=== PATIENT | female | born 1980 | race Caucasian/White ===

== ENCOUNTER 2019-06-01 07:51 | Emergency (ER) | payer SELFPAY ==
[2019-06-01] MEDS ORDERED: ALBUTEROL 2.5 MG/3 ML NEB SOL ONE ×2 (08:23→09:29)
[2019-06-01] MEDS ORDERED: predniSONE 20 MG TAB ONE (08:23)
[2019-06-01] MEDS ORDERED: IPRATROPIUM BROM 0.5MG/2.5ML ONE (08:23)
--- NOTE | 2019-06-01 09:14 | RAD REPORT ---
EXAM DESCRIPTION: Elaina Carrera (2 Views)06/01/2019 8:55 am CLINICAL HISTORY: Cough COMPARISON: 2012 FINDINGS: The lungs appear clear of acute infiltrate. The heart is normal size IMPRESSION: No acute abnormalities displayed
--- NOTE | 2019-06-01 09:26 | ER ---
Nurse's Notes [facility] Name: Raine Solis Age: 39 yrs Sex: Female : 1980 Arrival Date: 06/01/2019 Time: 07:55 Bed 8 Private MD: Diagnosis: Bronchitis, not specified as acute or chronic Presentation: 06/01 08:16 Presenting complaint: Patient states: COUGH AND CONGESTION SINCE FRIDAY. Transition bp of care: patient was not received from another setting of care. Onset of symptoms is unknown. Risk Assessment: Do you want to hurt yourself or someone else? Patient reports no desire to harm self or others. Initial Sepsis Screen: Does the patient meet any 2 criteria? No. Patient's initial sepsis screen is negative. Does the patient have a suspected source of infection? No. Patient's initial sepsis screen is negative. Care prior to arrival: None. 08:16 Method Of Arrival: Ambulatory bp 08:16 Acuity: YARI 4 bp Triage Assessment: 08:17 General: Appears in no apparent distress. comfortable, Behavior is calm, cooperative, bp appropriate for age. Pain: Denies pain. EENT: No deficits noted. Neuro: No deficits noted. Cardiovascular: Rhythm is sinus rhythm. Respiratory: Reports cough that is non-productive. GI: No signs and/or symptoms were reported involving the gastrointestinal system. : No signs and/or symptoms were reported regarding the genitourinary system. Derm: No deficits noted. Musculoskeletal: No deficits noted. 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 - Social history:: Smoking status: Patient uses tobacco products, smokes one-half pack cigarettes per day. - Ebola Screening: : No symptoms or risks identified at this time. Screenin:19 Abuse screen: Denies threats or abuse. Denies injuries from another. Nutritional bp screening: No deficits noted. Tuberculosis screening: No symptoms or risk factors identified. Fall Risk None identified. Assessment: 08:19 General: SEE TRIAGE NOTE. bp 08:32 Reassessment: PT RETURNED FROM RAD. bp 09:34 Reassessment: D/C ON HOLD FOR NEB COMPLETION. bp 09:58 Reassessment: PT D/C HOME AMBULATORY, DX WITH BRONCHITIS. bp Vital Signs: 08:17 BP 151 / 83; Pulse 70; Resp 18; Temp 98.2; Pulse Ox 100% ; Weight 83.91 kg; Height 5 bp ft. 7 in. (170.18 cm); 08:49 BP 113 / 72; Pulse 79; Resp 16; Pulse Ox 100% ; bp 09:35 BP 126 / 75; Pulse 81; Resp 16; Pulse Ox 100% ; bp 08:17 Body Mass Index 28.97 (83.91 kg, 170.18 cm) bp ED Course: 07:55 Patient arrived in ED. am2 07:55 Maci William FNP-C is [facility]. kb 07:55 Ashley Johnson MD is Attending Physician. kb 08:13 Crow Hughes, RN is Primary Nurse. bp 08:17 Triage completed. bp 08:17 Arm band placed on. bp 08:19 Patient has correct armband on for positive identification. Bed in low position. Call bp light in reach. Side rails up X2. 09:57 No provider procedures requiring assistance completed. Patient did not have IV access bp during this emergency room visit. Administered Medications: 08:20 Drug: DuoNeb (3:1) (2.5 mg - 0.5 mg) 3 ml Route: Nebulizer; bp 09:35 Follow up: Response: Marked relief of symptoms bp 08:20 Drug: predniSONE 40 mg Route: PO; bp 09:35 Follow up: Response: No adverse reaction bp 09:35 Drug: Zithromax 500 mg Route: PO; bp 09:35 Follow up: Response: No adverse reaction bp 09:35 Drug: Albuterol 2.5 mg Route: Inhalation; bp Outcome: 09:25 Discharge ordered by . kb 09:57 Discharged to home ambulatory. bp 09:57 Condition: stable 09:57 Discharge instructions given to patient, Instructed on discharge instructions, follow up and referral plans. medication usage, Demonstrated understanding of instructions, follow-up care, medications, Prescriptions given X 3. 09:58 Patient left the ED. bp Signatures: Maci William FNP-C TRIPLE VALVE MECHANIC-CkLiliya Cruz am2 Ellen, Crow, RN RN bp
--- NOTE | 2019-06-01 09:26 | EDPHYS ---
Physician Documentation [facility] Name: Raine Solis Age: 39 yrs Sex: Female : 1980 Arrival Date: 06/01/2019 Time: 07:55 Bed 8 Private MD: ED Physician Ashley Johnson HPI: 06/01 08:45 This 39 yrs old Female presents to ER via Ambulatory with complaints of Chest kb Congestion. 08:45 The patient or guardian reports cough, that is intermittent, described as moderate, kb with no sputum, difficulty breathing. Onset: The symptoms/episode began/occurred 7 day(s) ago. Severity of symptoms: At their worst the symptoms were moderate, in the emergency department the symptoms are unchanged. Modifying factors: The symptoms are alleviated by nothing, the symptoms are aggravated by nothing. Associated signs and symptoms: The patient has no apparent associated signs or symptoms. The patient has not experienced similar symptoms in the past. The patient has not recently seen a physician. Pt reports she developed a cough on Friday and symptoms have progressed from there. Reports subjective fever that has resolved. Reports chest congestion now that makes it hard to breathe. . 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 - Social history:: Smoking status: Patient uses tobacco products, smokes one-half pack cigarettes per day. - Ebola Screening: : No symptoms or risks identified at this time. ROS: 08:45 Constitutional: Negative for fever, chills, and weight loss, ENT: Negative for injury, kb pain, and discharge, Neck: Negative for injury, pain, and swelling, Cardiovascular: Negative for chest pain, palpitations, and edema, Abdomen/GI: Negative for abdominal pain, nausea, vomiting, diarrhea, and constipation, Back: Negative for injury and pain, MS/Extremity: Negative for injury and deformity, Skin: Negative for injury, rash, and discoloration, Neuro: Negative for headache, weakness, numbness, tingling, and seizure. 08:45 Respiratory: Positive for cough, shortness of breath. Exam: 08:45 Constitutional: This is a well developed, well nourished patient who is awake, alert, kb and in no acute distress. Head/Face: Normocephalic, atraumatic. ENT: Nares patent. No nasal discharge, no septal abnormalities noted. Tympanic membranes are normal and external auditory canals are clear. Oropharynx with no redness, swelling, or masses, exudates, or evidence of obstruction, uvula midline. Mucous membranes moist. Neck: Trachea midline, no thyromegaly or masses palpated, and no cervical lymphadenopathy. Supple, full range of motion without nuchal rigidity, or vertebral point tenderness. No Meningismus. Chest/axilla: Normal chest wall appearance and motion. Nontender with no deformity. No lesions are appreciated. Cardiovascular: Regular rate and rhythm with a normal S1 and S2. No gallops, murmurs, or rubs. Normal PMI, no JVD. No pulse deficits. Abdomen/GI: Soft, non-tender, with normal bowel sounds. No distension or tympany. No guarding or rebound. No evidence of tenderness throughout. Back: No spinal tenderness. No costovertebral tenderness. Full range of motion. Skin: Warm, dry with normal turgor. Normal color with no rashes, no lesions, and no evidence of cellulitis. MS/ Extremity: Pulses equal, no cyanosis. Neurovascular intact. Full, normal range of motion. Neuro: Awake and alert, GCS 15, oriented to person, place, time, and situation. Cranial nerves II-XII grossly intact. Motor strength 5/5 in all extremities. Sensory grossly intact. Cerebellar exam normal. Normal gait. 08:45 Respiratory: the patient does not display signs of respiratory distress, Respirations: normal, Breath sounds: wheezing: expiratory that is moderate, is heard diffusely. Vital Signs: 08:17 BP 151 / 83; Pulse 70; Resp 18; Temp 98.2; Pulse Ox 100% ; Weight 83.91 kg; Height 5 bp ft. 7 in. (170.18 cm); 08:49 BP 113 / 72; Pulse 79; Resp 16; Pulse Ox 100% ; bp 09:35 BP 126 / 75; Pulse 81; Resp 16; Pulse Ox 100% ; bp 08:17 Body Mass Index 28.97 (83.91 kg, 170.18 cm) bp MDM: 08:11 Patient medically screened. kb 08:44 Data reviewed: vital signs, nurses notes. Data interpreted: Pulse oximetry: on room air kb is 100 %. Interpretation: normal. 09:17 Counseling: I had a detailed discussion with the patient and/or guardian regarding: the kb historical points, exam findings, and any diagnostic results supporting the discharge/admit diagnosis, radiology results, the need for outpatient follow up, a family practitioner, to return to the emergency department if symptoms worsen or persist or if there are any questions or concerns that arise at home. 09:18 ED course: Antibiotics given due to smoking status. kb 06/01 08:16 Order name: Chest Pa And Lat (2 Views) XRAY kb 06/01 09:16 Order name: RAD; Complete Time: :17 EDMS Administered Medications: 08:20 Drug: DuoNeb (3:1) (2.5 mg - 0.5 mg) 3 ml Route: Nebulizer; bp 09:35 Follow up: Response: Marked relief of symptoms bp 08:20 Drug: predniSONE 40 mg Route: PO; bp 09:35 Follow up: Response: No adverse reaction bp 09:35 Drug: Zithromax 500 mg Route: PO; bp 09:35 Follow up: Response: No adverse reaction bp 09:35 Drug: Albuterol 2.5 mg Route: Inhalation; bp Disposition: 17:22 Co-signature as Attending Physician, Ashley Johnson MD. ma2 Disposition: 06/01/19 09:25 Discharged to Home. Impression: Bronchitis, not specified as acute or chronic. - Condition is Stable. - Discharge Instructions: Acute Bronchitis, [id number]. - Prescriptions for Prednisone 20 mg Oral Tablet - take 1 tablet by ORAL route once daily for 5 days; 5 tablet. Zithromax Z- Yordy 250 mg Oral Tablet - take 1 tablet by ORAL route as directed for 5 days Day 1 - take two (2) tablets one time. Day 2, 3, 4 , 5 take one (1) tablet once daily.; 6 tablet. Albuterol Sulfate 90 mcg/actuation - inhale 1-2 puff by INHALATION route every 4-6 hours; 1 Inhaler. - Medication Reconciliation Form, Thank You Letter, Antibiotic Education, Prescription Opioid Use, Work release form form. - Follow up: Emergency Department; When: As needed; Reason: Worsening of condition. Follow up: Private Physician; When: 2 - 3 days; Reason: Recheck today's complaints, Continuance of care, Re-evaluation by your physician. Signatures: Dispatcher [employer] Maci Carl FNP-C FNP-Ckb Peltier, Brian, RN RN bp Ashley Johnson MD MD ma2 Corrections: (The following items were deleted from the chart) 09:58 09:25 06/01/2019 09:25 Discharged to Home. Impression: Bronchitis, not specified as bp acute or chronic. Condition is Stable. Discharge Instructions: Acute Bronchitis, [id number]. Prescriptions for Prednisone 20 mg Oral Tablet - take 1 tablet by ORAL route once daily for 5 days; 5 tablet, Zithromax Z-Yordy 250 mg Oral Tablet - take 1 tablet by ORAL route as directed for 5 days Day 1 - take two (2) tablets one time. Day 2, 3, 4 , 5 take one (1) tablet once daily.; 6 tablet, Albuterol Sulfate 90 mcg/actuation - inhale 1-2 puff by INHALATION route every 4-6 hours; 1 Inhaler. and Forms are Medication Reconciliation Form, Thank You Letter, Antibiotic Education, Prescription Opioid Use. Follow up: Emergency Department; When: As needed; Reason: Worsening of condition. Follow up: Private Physician; When: 2 - 3 days; Reason: Recheck today's complaints, Continuance of care, Re-evaluation by your physician. kb
[2019-06-01] MEDS ORDERED: AZITHROMYCIN 250 MG TAB ONE (09:29)
[2019-06-01 10:08] VITALS: TEMP 98.2; O2SAT 100
[2019-06-01 10:11] VITALS: BP 126/75
== END 2019-06-01 09:58 | disposition home or self-care (01) ==
LOC: ER 07:51
DX: J40 Bronchitis, not specified as acute or chronic (principal); F17.210 Nicotine dependence, cigarettes, uncomplicated
CPT/HCPCS: 71046; 94640; 99284; J7512

== ENCOUNTER 2019-07-05 19:38 | Emergency (ER) | payer BC, SELFPAY ==
[2019-07-05] MEDS ORDERED: ALBUTEROL 2.5 MG/3 ML NEB SOL ONE (20:03)
[2019-07-05] MEDS ORDERED: AZITHROMYCIN 250 MG TAB ONE (20:03)
[2019-07-05] MEDS ORDERED: FAMOTIDINE 20 MG TAB ONE (20:03)
[2019-07-05] MEDS ORDERED: IPRATROPIUM BROM 0.5MG/2.5ML ONE (20:03)
[2019-07-05] MEDS ORDERED: predniSONE 20 MG TAB ONE (20:03)
--- NOTE | 2019-07-05 20:05 | EDPHYS ---
Physician Documentation [facility] Name: Raine Solis Age: 39 yrs Sex: Female : 1980 Arrival Date: 07/05/2019 Time: 19:40 Bed 20 Private MD: ED Physician Lester Eng HPI: 07/05 20:14 This 39 yrs old Female presents to ER via Ambulatory with complaints of Chest snw Congestion. 20:14 Onset: The symptoms/episode began/occurred suddenly, 1 day(s) ago, and became snw persistent. Associated signs and symptoms: Pertinent positives: cough, fever. The patient has experienced similar episodes in the past. The patient has not recently seen a physician. 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 - Social history:: Smoking status: Patient reports the use of cigarette tobacco products, smokes one-half pack cigarettes per day. - Ebola Screening: : No symptoms or risks identified at this time. ROS: 20:14 Constitutional: Negative for fever, chills, and weight loss, Eyes: Negative for injury, snw pain, redness, and discharge, ENT: Negative for injury, pain, and discharge, Neck: Negative for injury, pain, and swelling. 20:14 Cardiovascular: Negative for chest pain, palpitations, and edema, Abdomen/GI: Negative for abdominal pain, nausea, vomiting, diarrhea, and constipation, Back: Negative for injury and pain, : Negative for injury, bleeding, discharge, and swelling, MS/Extremity: Negative for injury and deformity, Skin: Negative for injury, rash, and discoloration, Neuro: Negative for headache, weakness, numbness, tingling, and seizure, Psych: Negative for depression, anxiety, suicide ideation, homicidal ideation, and hallucinations. 20:14 Respiratory: Positive for cough, wheezing, expiratory. Exam: 20:11 Abdomen/GI: Soft, non-tender, with normal bowel sounds. No distension or tympany. No snw guarding or rebound. No evidence of tenderness throughout. Back: No spinal tenderness. No costovertebral tenderness. Full range of motion. Skin: Warm, dry with normal turgor. Normal color with no rashes, no lesions, and no evidence of cellulitis. MS/ Extremity: Pulses equal, no cyanosis. Neurovascular intact. Full, normal range of motion. Neuro: Awake and alert, GCS 15, oriented to person, place, time, and situation. Cranial nerves II-XII grossly intact. Motor strength 5/5 in all extremities. Sensory grossly intact. Cerebellar exam normal. Normal gait. Psych: Awake, alert, with orientation to person, place and time. Behavior, mood, and affect are within normal limits. 20:11 Constitutional: This is a well developed, well nourished patient who is awake, alert, and in no acute distress. Head/Face: Normocephalic, atraumatic. Eyes: Pupils equal round and reactive to light, extra-ocular motions intact. Lids and lashes normal. Conjunctiva and sclera are non-icteric and not injected. Cornea within normal limits. Periorbital areas with no swelling, redness, or edema. ENT: Nares patent. No nasal discharge, no septal abnormalities noted. Tympanic membranes are erythematous and external auditory canals are clear. Oropharynx with no redness, swelling, or masses, exudates, or evidence of obstruction, uvula midline. Mucous membranes moist. Neck: Trachea midline, no thyromegaly or masses palpated, and no cervical lymphadenopathy. Supple, full range of motion without nuchal rigidity, or vertebral point tenderness. No Meningismus. Chest/axilla: Normal chest wall appearance and motion. Nontender with no deformity. No lesions are appreciated. 20:11 Cardiovascular: Rate: tachycardic, Rhythm: regular, Heart sounds: normal. 20:11 Respiratory: the patient does not display signs of respiratory distress, Respirations: normal, Breath sounds: wheezing: expiratory that is moderate, is heard diffusely, bronchitic cough. Vital Signs: 19:48 BP 150 / 84; Pulse 109; Resp 20; Temp 100.5(O); Pulse Ox 100% ; Weight 81.65 kg; Height hb 5 ft. 7 in. (170.18 cm); Pain 7/10; 19:48 Body Mass Index 28.19 (81.65 kg, 170.18 cm) hb MDM: 19:46 Patient medically screened. taina 20:12 Data reviewed: vital signs, nurses notes. Data interpreted: Pulse oximetry: on room air snw is 100 %. Interpretation: normal. Counseling: I had a detailed discussion with the patient and/or guardian regarding: the historical points, exam findings, and any diagnostic results supporting the discharge/admit diagnosis, the need for outpatient follow up, for definitive care, to return to the emergency department if symptoms worsen or persist or if there are any questions or concerns that arise at home. Special discussion: I have referred the patient to see his PCP for further evaluation of high blood pressure. Based on the history and exam findings, there is no indication for further emergent testing or inpatient evaluation. I discussed with the patient/guardian the need to see the primary care provider for further evaluation of the symptoms. Administered Medications: 20:04 Drug: Pepcid 20 mg Route: PO; hb 20:29 Follow up: Response: No adverse reaction hb 20:05 Drug: Zithromax 500 mg Route: PO; hb 20:29 Follow up: Response: No adverse reaction hb 20:05 Drug: Albuterol - atroVENT (3:1) (2.5 mg - 0.5 mg) 3 ml Route: Nebulizer; hb 20:29 Follow up: Response: No adverse reaction hb 20:05 Drug: predniSONE 40 mg Route: PO; hb 20:29 Follow up: Response: No adverse reaction hb Disposition: 07/06 07:45 Co-signature as Attending Physician, Lester Eng MD I agree with the assessment and [facility] plan of care. Disposition: 07/05/19 20:04 Discharged to Home. Impression: Bronchitis, not specified as acute or chronic, Otitis media, unspecified, bilateral. - Condition is Stable. - Discharge Instructions: Acute Bronchitis, Adult, Hypertension, Steps to Quit Smoking, Smoking Hazards, Cough, Adult, Rehydration, Adult. - Prescriptions for Prednisone 20 mg Oral Tablet - take 2 tablet by ORAL route once daily for 5 days; 10 tablet. Albuterol Sulfate 90 mcg/actuation - inhale 1-2 puff by INHALATION route every 4-6 hours; 1 Inhaler. Pepcid 20 mg Oral Tablet - take 1 tablet by ORAL route once daily; 20 tablet. Zithromax 500 mg Oral Tablet - take 1 tablet by ORAL route once daily for 5 days; 5 tablet. - Work release form, Medication Reconciliation Form, Thank You Letter, Antibiotic Education, Prescription Opioid Use form. - Follow up: Emergency Department; When: As needed; Reason: Worsening of condition. Follow up: Private Physician; When: 2 - 3 days; Reason: Recheck today's complaints, Continuance of care, Re-evaluation by your physician. Signatures: Lester Eng MD MD cha Therrien, Shelly, CURED MEATS SUPERVISOR-C CURED MEATS SUPERVISOR-Csnw Cece Nevarez RN RN Corrections: (The following items were deleted from the chart) 07/05 20:16 20:11 Constitutional: This is a well developed, well nourished patient who is awake, snw alert, and in no acute distress. Head/Face: Normocephalic, atraumatic. Eyes: Pupils equal round and reactive to light, extra-ocular motions intact. Lids and lashes normal. Conjunctiva and sclera are non-icteric and not injected. Cornea within normal limits. Periorbital areas with no swelling, redness, or edema. ENT: Nares patent. No nasal discharge, no septal abnormalities noted. Tympanic membranes are normal and external auditory canals are clear. Oropharynx with no redness, swelling, or masses, exudates, or evidence of obstruction, uvula midline. Mucous membranes moist. Neck: Trachea midline, no thyromegaly or masses palpated, and no cervical lymphadenopathy. Supple, full range of motion without nuchal rigidity, or vertebral point tenderness. No Meningismus. Chest/axilla: Normal chest wall appearance and motion. Nontender with no deformity. No lesions are appreciated. snw 20:16 20:11 Abdomen/GI: Soft, non-tender, with normal bowel sounds. No distension or tympany. snw No guarding or rebound. No evidence of tenderness throughout. Back: No spinal tenderness. No costovertebral tenderness. Full range of motion. Skin: Warm, dry with normal turgor. Normal color with no rashes, no lesions, and no evidence of cellulitis. MS/ Extremity: Pulses equal, no cyanosis. Neurovascular intact. Full, normal range of motion. Neuro: Awake and alert, GCS 15, oriented to person, place, time, and situation. Cranial nerves II-XII grossly intact. Motor strength 5/5 in all extremities. Sensory grossly intact. Cerebellar exam normal. Normal gait. Psych: Awake, alert, with orientation to person, place and time. Behavior, mood, and affect are within normal limits. snw 20:30 20:04 07/05/2019 20:04 Discharged to Home. Impression: Bronchitis, not specified as hb acute or chronic; Otitis media, unspecified, bilateral. Condition is Stable. Forms are Medication Reconciliation Form, Thank You Letter, Antibiotic Education, Prescription Opioid Use. Follow up: Emergency Department; When: As needed; Reason: Worsening of condition. Follow up: Private Physician; When: 2 - 3 days; Reason: Recheck today's complaints, Continuance of care, Re-evaluation by your physician. snw
--- NOTE | 2019-07-05 20:05 | ER ---
Nurse's Notes [facility] [place] Name: Raine Solis Age: 39 yrs Sex: Female : 1980 Arrival Date: 07/05/2019 Time: 19:40 Bed 20 Private MD: Diagnosis: Bronchitis, not specified as acute or chronic;Otitis media, unspecified, bilateral Presentation: 07/05 19:46 Presenting complaint: Nonproductive cough, body aches, and chills x 5 days. Transition hb of care: patient was not received from another setting of care. Onset of symptoms was July 01, 2019. Risk Assessment: Do you want to hurt yourself or someone else? Patient reports no desire to harm self or others. Initial Sepsis Screen: Does the patient meet any 2 criteria? No. Patient's initial sepsis screen is negative. Does the patient have a suspected source of infection? No. Patient's initial sepsis screen is negative. Care prior to arrival: None. 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 - Social history:: Smoking status: Patient reports the use of cigarette tobacco products, smokes one-half pack cigarettes per day. - Ebola Screening: : No symptoms or risks identified at this time. Screenin:49 Abuse screen: Denies threats or abuse. Denies injuries from another. Nutritional hb screening: No deficits noted. Tuberculosis screening: No symptoms or risk factors identified. Fall Risk None identified. Assessment: 19:51 General: Appears in no apparent distress. Behavior is calm, cooperative. Pain: Pain hb currently is 7 out of 10 on a pain scale. Neuro: Level of Consciousness is awake, alert, obeys commands, Oriented to person, place, time, situation. Cardiovascular: Heart tones S1 S2 present Capillary refill < 3 seconds Patient's skin is warm and dry. Respiratory: Airway is patent Trachea midline Respiratory effort is even, unlabored, Respiratory pattern is regular, symmetrical, Breath sounds are clear bilaterally. GI: No signs and/or symptoms were reported involving the gastrointestinal system. : No signs and/or symptoms were reported regarding the genitourinary system. EENT: No signs and/or symptoms were reported regarding the EENT system. Derm: Skin is pink, warm \T\ dry. Musculoskeletal: No signs and/or symptoms reported regarding the musculoskeletal system. 20:17 Reassessment: Discharge ordered, neb treatment in process at this time. hb Vital Signs: 19:48 BP 150 / 84; Pulse 109; Resp 20; Temp 100.5(O); Pulse Ox 100% ; Weight 81.65 kg; Height hb 5 ft. 7 in. (170.18 cm); Pain 7/10; 19:48 Body Mass Index 28.19 (81.65 kg, 170.18 cm) hb ED Course: 19:40 Patient arrived in ED. es 19:42 Jesi Meza FNP-C is PHCP. snw 19:42 Lester Eng MD is Attending Physician. snw 19:44 Cece Nevarez, MARLIN is Primary Nurse. hb 19:47 Triage completed. hb 19:48 Arm band placed on. hb 19:49 Patient has correct armband on for positive identification. Bed in low position. Call hb light in reach. Side rails up X 1. 20:27 No provider procedures requiring assistance completed. Patient did not have IV access hb during this emergency room visit. Administered Medications: 20:04 Drug: Pepcid 20 mg Route: PO; hb 20:29 Follow up: Response: No adverse reaction hb 20:05 Drug: Zithromax 500 mg Route: PO; hb 20:29 Follow up: Response: No adverse reaction hb 20:05 Drug: Albuterol - atroVENT (3:1) (2.5 mg - 0.5 mg) 3 ml Route: Nebulizer; hb 20:29 Follow up: Response: No adverse reaction hb 20:05 Drug: predniSONE 40 mg Route: PO; hb 20:29 Follow up: Response: No adverse reaction hb Outcome: 20:04 Discharge ordered by . snw 20:27 Discharged to home ambulatory, with significant other. hb 20:27 Condition: stable 20:27 Discharge instructions given to patient, Instructed on discharge instructions, follow up and referral plans. medication usage, Demonstrated understanding of instructions, follow-up care, medications, Prescriptions given X 4. 20:30 Patient left the ED. hb Signatures: Jesi Meza, ENGRAVER HAND SOFT METALS-C ENGRAVER HAND SOFT METALS-Csnw Mayra Hayward Heather, RN RN hb
[2019-07-05 23:07] VITALS: BP 150/84; TEMP 100.5; O2SAT 100
== END 2019-07-05 20:30 | disposition home or self-care (01) ==
LOC: ER 19:38
DX: J40 Bronchitis, not specified as acute or chronic (principal); H66.93 Otitis media, unspecified, bilateral; F17.210 Nicotine dependence, cigarettes, uncomplicated
CPT/HCPCS: 94640; 99284; J7512

== ENCOUNTER 2020-01-03 12:58 | Emergency (ER) | payer BC ==
--- NOTE | 2020-01-03 15:12 | RAD REPORT ---
EXAM DESCRIPTION: Shoulder Right 2 View - 01/03/2020 2:48 pm CLINICAL HISTORY: PAIN COMPARISON: No comparisons TECHNIQUE: Internal and external rotation views of the right shoulder were obtained. FINDINGS: There is no fracture or dislocation. AC joint is normal in appearance. No acute or suspic ious findings. IMPRESSION: Negative two-view right shoulder examination.
[2020-01-03] MEDS ORDERED: KETOROLAC 30 MG/ML INJ ONE (15:43)
[2020-01-03] MEDS ORDERED: DIAZEPAM 2 MG TABLET ONE (15:43)
--- NOTE | 2020-01-03 16:27 | ER ---
Nurse's Notes [facility] [place] Name: Raine Solis Age: 39 yrs Sex: Female : 1980 Arrival Date: 01/03/2020 Time: 13:01 Bed 18 Private MD: Diagnosis: Fall (on) (from) other stairs and steps;Strain of muscle(s) and tendon(s) of the rotator cuff of right shoulder Presentation: 01/02 13:22 Chief complaint: Patient states: fell from back seat on truck and landing on ground em yesterday monting, landed on right shoulder and face, denies neck pain, reports pain with movement on right shoulder, denies LOC. Coronavirus screen: Patient denies a cough. Patient denies shortness of breath or difficulty breathing. Patient denies measured and/or subjective temperature greater than 100.4F prior to today's visit. Patient denies travel on a cruise ship or to a country the [facility] currently lists as an affected area. Patient denies contact with known and/or suspected case of COVID-19. Ebola Screen: Patient negative for fever greater than or equal to 101.5 degrees Fahrenheit, and additional compatible Ebola Virus Disease symptoms Patient denies exposure to infectious person. Patient denies travel to an Ebola-affected area in the 21 days before illness onset. No symptoms or risks identified at this time. Initial Sepsis Screen: Does the patient meet any 2 criteria? No. Patient's initial sepsis screen is negative. Does the patient have a suspected source of infection? No. Patient's initial sepsis screen is negative. Risk Assessment: Do you want to hurt yourself or someone else? Patient reports no desire to harm self or others. Onset of symptoms was January 02, 2020. 13:22 Method Of Arrival: Ambulatory em 13:22 Acuity: YARI 4 em Triage Assessment: 14:10 General: Appears in no apparent distress. uncomfortable, Behavior is calm, cooperative, bp appropriate for age. Pain: Complains of pain in anterior aspect of right shoulder. EENT: No deficits noted. Neuro: No deficits noted. Cardiovascular: No deficits noted. Respiratory: No deficits noted. GI: No signs and/or symptoms were reported involving the gastrointestinal system. : No signs and/or symptoms were reported regarding the genitourinary system. Derm: No deficits noted. Musculoskeletal: No deficits noted. Injury Description: Bruise sustained to anterior aspect of right shoulder. 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 - Social history:: Smoking status: Patient reports the use of cigarette tobacco products, smokes one-half pack cigarettes per day. Screenin:10 Abuse screen: Denies threats or abuse. Denies injuries from another. Nutritional bp screening: No deficits noted. Tuberculosis screening: No symptoms or risk factors identified. Fall Risk None identified. Assessment: 14:10 General: SEE TRIAGE NOTE. bp 16:40 Reassessment: PT D/C HOME AMBULATORY, DX WITH ROTATOR CUFF STRAIN. bp Vital Signs: 13:22 BP 111 / 75; Pulse 85; Resp 18; Temp 98.1(O); Pulse Ox 100% on R/A; Weight 90.72 kg; em Height 5 ft. 6 in. (167.64 cm); Pain 6/10; 15:00 BP 121 / 69; Pulse 79; Resp 18; Pulse Ox 100% ; bp 16:35 BP 117 / 71; Pulse 81; Resp 18; Temp 98.5; Pulse Ox 99% ; bp 13:22 Body Mass Index 32.28 (90.72 kg, 167.64 cm) em ED Course: 13:01 Patient arrived in ED. bp1 13:26 Triage completed. em 13:26 Arm band placed on. em 14:10 Patient has correct armband on for positive identification. Bed in low position. Call bp light in reach. Side rails up X2. 14:21 Jesi Lau FNP-C is PHCP. snw 14:21 Jerman Mitchell MD is Attending Physician. snw 14:34 Crow Hughes, MARLIN is Primary Nurse. bp 14:48 Shoulder Right (2 View) XRAY In Process Unspecified. EDMS 16:00 Sling applied to right arm. bp 16:25 Wes Ramirez MD is Referral Physician. snw 16:40 No provider procedures requiring assistance completed. Patient did not have IV access bp during this emergency room visit. Administered Medications: 15:30 Drug: TORadol 30 mg Route: IM; Site: left deltoid; bp 16:42 Follow up: Response: Pain is decreased bp 15:30 Drug: Valium 2 mg Route: PO; bp 16:41 Follow up: Response: No adverse reaction bp Outcome: 16:26 Discharge ordered by MD. fox 16:41 Discharged to home ambulatory. bp 16:41 Condition: stable 16:41 Discharge instructions given to patient, Instructed on discharge instructions, follow up and referral plans. medication usage, Demonstrated understanding of instructions, follow-up care, medications, splint care, Prescriptions given X 2. 16:42 Patient left the ED. bp Signatures: Dispatcher [employer] EDJesi Gordon, BINDING DYER-C BINDING DYER-Csnw Christiano Tapia, RN RN Crow Leblanc RN RN Elisabeth Ryder bp1
--- NOTE | 2020-01-03 16:27 | EDPHYS ---
Physician Documentation [facility] Name: Raine Solis Age: 39 yrs Sex: Female : 1980 Arrival Date: 01/03/2020 Time: 13:01 Bed 18 Private MD: ED Physician Jerman Mitchell HPI: 01/02 17:29 This 39 yrs old Female presents to ER via Ambulatory with complaints of snw Shoulder Injury, Shoulder Pain. 17:29 The patient or guardian complains of contusion, decreased range of motion, an injury, snw pain, that is acute. right shoulder. Context: The problem was sustained outdoors, resulted from a fall, from truckbed, The patient experiences decreased range of motion. Onset: The symptoms/episode began/occurred suddenly, 4 day(s) ago. Severity of symptoms: At their worst the symptoms were moderate. The patient has not experienced similar symptoms in the past. The patient has not recently seen a physician. 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 - Social history:: Smoking status: Patient reports the use of cigarette tobacco products, smokes one-half pack cigarettes per day. ROS: 17:28 Constitutional: Negative for fever, chills, and weight loss, Eyes: Negative for injury, snw pain, redness, and discharge, ENT: Negative for injury, pain, and discharge, Neck: Negative for injury, pain, and swelling, Cardiovascular: Negative for chest pain, palpitations, and edema, Respiratory: Negative for shortness of breath, cough, wheezing, and pleuritic chest pain, Abdomen/GI: Negative for abdominal pain, nausea, vomiting, diarrhea, and constipation, Back: Negative for injury and pain, : Negative for injury, bleeding, discharge, and swelling, Skin: Negative for injury, rash, and discoloration, Neuro: Negative for headache, weakness, numbness, tingling, and seizure, Psych: Negative for depression, anxiety, suicide ideation, homicidal ideation, and hallucinations. 17:28 MS/extremity: Positive for injury or acute deformity, contusion, decreased range of motion, pain, tenderness, of the right arm and anterior aspect of right shoulder. Exam: 17:27 Constitutional: This is a well developed, well nourished patient who is awake, alert, snw and in no acute distress. Head/Face: Normocephalic, atraumatic. Eyes: Pupils equal round and reactive to light, extra-ocular motions intact. Lids and lashes normal. Conjunctiva and sclera are non-icteric and not injected. Cornea within normal limits. Periorbital areas with no swelling, redness, or edema. ENT: Nares patent. No nasal discharge, no septal abnormalities noted. Tympanic membranes are normal and external auditory canals are clear. Oropharynx with no redness, swelling, or masses, exudates, or evidence of obstruction, uvula midline. Mucous membranes moist. Neck: Trachea midline, no thyromegaly or masses palpated, and no cervical lymphadenopathy. Supple, full range of motion without nuchal rigidity, or vertebral point tenderness. No Meningismus. Chest/axilla: Normal chest wall appearance and motion. Nontender with no deformity. No lesions are appreciated. Cardiovascular: Regular rate and rhythm with a normal S1 and S2. No gallops, murmurs, or rubs. Normal PMI, no JVD. No pulse deficits. Respiratory: Lungs have equal breath sounds bilaterally, clear to auscultation and percussion. No rales, rhonchi or wheezes noted. No increased work of breathing, no retractions or nasal flaring. Abdomen/GI: Soft, non-tender, with normal bowel sounds. No distension or tympany. No guarding or rebound. No evidence of tenderness throughout. Back: No spinal tenderness. No costovertebral tenderness. Full range of motion. Skin: Warm, dry with normal turgor. Normal color with no rashes, no lesions, and no evidence of cellulitis. Neuro: Awake and alert, GCS 15, oriented to person, place, time, and situation. Cranial nerves II-XII grossly intact. Motor strength 5/5 in all extremities. Sensory grossly intact. Cerebellar exam normal. Normal gait. Psych: Awake, alert, with orientation to person, place and time. Behavior, mood, and affect are within normal limits. 17:27 Musculoskeletal/extremity: Extremities: grossly normal except: noted in the anterior aspect of right shoulder: contusion, decreased ROM, pain, ROM: limited active range of motion due to pain, limited passive range of motion due to pain, in the right arm, Circulation is intact in all extremities. Sensation intact. Compartment Syndrome exam of affected extremity: is normal. Vital Signs: 13:22 BP 111 / 75; Pulse 85; Resp 18; Temp 98.1(O); Pulse Ox 100% on R/A; Weight 90.72 kg; em Height 5 ft. 6 in. (167.64 cm); Pain 6/10; 15:00 BP 121 / 69; Pulse 79; Resp 18; Pulse Ox 100% ; bp 16:35 BP 117 / 71; Pulse 81; Resp 18; Temp 98.5; Pulse Ox 99% ; bp 13:22 Body Mass Index 32.28 (90.72 kg, 167.64 cm) em MDM: 16:15 Patient medically screened. snw 17:28 Data reviewed: vital signs, nurses notes. Data interpreted: Pulse oximetry: on room air snw is 99 %. Interpretation: normal. Counseling: I had a detailed discussion with the patient and/or guardian regarding: the historical points, exam findings, and any diagnostic results supporting the discharge/admit diagnosis, radiology results, the need for outpatient follow up, to return to the emergency department if symptoms worsen or persist or if there are any questions or concerns that arise at home. Special discussion: Based on the history and exam findings, there is no indication for further emergent testing or inpatient evaluation. I discussed with the patient/guardian the need to see the orthopedic surgeon for further evaluation of the symptoms. I discussed with the patient/guardian the need to see the primary care provider for further evaluation of the symptoms. 01/02 13:28 Order name: Shoulder Right (2 View) XRAY; Complete Time: 15:14 em 01/02 16:16 Order name: Sling; Complete Time: 16:42 snw Administered Medications: 15:30 Drug: TORadol 30 mg Route: IM; Site: left deltoid; bp 16:42 Follow up: Response: Pain is decreased bp 15:30 Drug: Valium 2 mg Route: PO; bp 16:41 Follow up: Response: No adverse reaction bp Disposition: 18:25 Co-signature as Attending Physician, Jerman Mitchell MD. rn Disposition: 01/03/20 16:26 Discharged to Home. Impression: Fall (on) (from) other stairs and steps, Strain of muscle(s) and tendon(s) of the rotator cuff of right shoulder. - Condition is Stable. - Discharge Instructions: RICE for Routine Care of Injuries, Shoulder Pain, Shoulder Sprain, How to Use a Sling. - Prescriptions for Diclofenac Sodium 75 mg Oral Tablet Sustained Release - take 1 tablet by ORAL route 2 times per day; 30 tablet. orphenadrine citrate 100 mg Oral Tablet Sustained Release - take 1 tablet by ORAL route 2 times per day As needed; 20 tablet. - Work release form, Medication Reconciliation Form, Thank You Letter, Antibiotic Education, Prescription Opioid Use form. - Follow up: Emergency Department; When: As needed; Reason: Worsening of condition. Follow up: Wes Ramirez MD; When: 1 week; Reason: Recheck today's complaints, Continuance of care. Signatures: Dispatcher [employer] EDMS Jesi Lau, GE-C SIGN BUILDER-Csnw Christiano Tapia, RN RN Jerman Bhatia MD MD rn Peltier, Brian RN RN bp Corrections: (The following items were deleted from the chart) 16:42 16:26 01/03/2020 16:26 Discharged to Home. Impression: Fall (on) (from) other stairs bp and steps; Strain of muscle(s) and tendon(s) of the rotator cuff of right shoulder. Condition is Stable. Forms are Medication Reconciliation Form, Thank You Letter, Antibiotic Education, Prescription Opioid Use. Follow up: Emergency Department; When: As needed; Reason: Worsening of condition. Follow up: Dr. Wes Ramirez; When: 1 week; Reason: Recheck today's complaints, Continuance of care. snw
[2020-01-04 03:20] VITALS: BP 117/71; TEMP 98.5; O2SAT 99
== END 2020-01-03 16:42 | disposition home or self-care (01) ==
LOC: ER 12:58
DX: S46.011A Strain of muscle(s) and tendon(s) of the rotator cuff of right shoulder, initial encounter (principal); W10.9XXA Fall (on) (from) unspecified stairs and steps, initial encounter; Y93.9 Activity, unspecified; Y92.9 Unspecified place or not applicable; F17.210 Nicotine dependence, cigarettes, uncomplicated
CPT/HCPCS: 96372; 99284

== ENCOUNTER 2021-01-05 13:57 | Emergency (ER) | payer BC ==
[2021-01-05 15:13] LABS: Urine Blood 1+ (Negative); Urine Glucose Negative (Negative); Urine Protein 2+ (Negative)
[2021-01-05] MEDS ORDERED: ACETAMINOPHEN 500 MG TAB ONE (15:23)
[2021-01-05 15:37] LABS: Urine Bacteria 20-50 /HPF (<20); Urine Mucus 1+ /HPF (NONE SEEN)
[2021-01-05 15:54] LABS: Absolute Lymphocytes (CBC) 1.7 K/uL (0.7-4.9); Basophils % 0.3 % (0-1.3); Hematocrit 37.8 % (36.0-45.0); Lymphocytes % 12.8 % (15.3-44.8); MPV 8.2 fL (7.6-11.3); RBC Red Blood Cell Count 4.41 M/uL (3.86-4.86)
[2021-01-05] MEDS ORDERED: NA CHLORIDE 0.9% 1,000 ML ONE (15:55)
[2021-01-05] MEDS ORDERED: CEFTRIAXONE/SWI 1gm 1 GM/10 ML SYR ONE (15:55)
[2021-01-05 16:10] LABS: Albumin 3.3 g/dL (3.4-5.0); Bilirubin Direct 0.2 mg/dL (0-0.2); Bilirubin Total 0.5 mg/dL (0.2-1.0); Potassium 3.5 mmol/L (3.5-5.1); Protein, Total 7.6 g/dL (6.4-8.2)
--- NOTE | 2021-01-05 16:26 | EDPHYS ---
Physician Documentation [facility] Name: Raine Sol[facility] Age: 40 yrs Sex: Female : 1980 Arrival Date: 01/05/2021 Time: 13:59 Bed 7 Private MD: ED Physician Ashley Johnson HPI: 01/05 15:13 This 40 yrs old Female presents to ER via Ambulatory with complaints of ma2 Fever, Chills. 15:13 Onset: The symptoms/episode began/occurred gradually, 2 day(s) ago. Associated signs ma2 and symptoms: Pertinent positives: dysuria, Pertinent negatives: altered mental status, backache, chills, cough, diarrhea, pulling at ears, nausea, runny nose, sinus congestion, skin rash. Severity of symptoms: At their worst the symptoms were moderate in the emergency department the symptoms are unchanged. The patient has experienced similar episodes in the past. 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 - Social history:: Smoking status: Patient reports the use of cigarette tobacco products, smokes one-half pack cigarettes per day, Patient uses alcohol, weekly. - Family history:: not pertinent. ROS: 15:13 Constitutional: Negative for fever, chills, and weight loss. ma2 15:13 All other systems are negative. Exam: 15:13 Constitutional: This is a well developed, well nourished patient who is awake, alert, ma2 and in no acute distress. Head/Face: Normocephalic, atraumatic. Eyes: Pupils equal round and reactive to light, extra-ocular motions intact. Lids and lashes normal. Conjunctiva and sclera are non-icteric and not injected. Cornea within normal limits. Periorbital areas with no swelling, redness, or edema. ENT: Nares patent. No nasal discharge, no septal abnormalities noted. Tympanic membranes are normal and external auditory canals are clear. Oropharynx with no redness, swelling, or masses, exudates, or evidence of obstruction, uvula midline. Mucous membranes moist. Neck: Trachea midline, no thyromegaly or masses palpated, and no cervical lymphadenopathy. Supple, full range of motion without nuchal rigidity, or vertebral point tenderness. No Meningismus. Chest/axilla: Normal chest wall appearance and motion. Nontender with no deformity. No lesions are appreciated. Cardiovascular: Regular rate and rhythm with a normal S1 and S2. No gallops, murmurs, or rubs. Normal PMI, no JVD. No pulse deficits. Respiratory: Lungs have equal breath sounds bilaterally, clear to auscultation and percussion. No rales, rhonchi or wheezes noted. No increased work of breathing, no retractions or nasal flaring. Abdomen/GI: Soft, non-tender, with normal bowel sounds. No distension or tympany. No guarding or rebound. No evidence of tenderness throughout. Back: No spinal tenderness. No costovertebral tenderness. Full range of motion. Skin: Warm, dry with normal turgor. Normal color with no rashes, no lesions, and no evidence of cellulitis. MS/ Extremity: Pulses equal, no cyanosis. Neurovascular intact. Full, normal range of motion. Neuro: Awake and alert, GCS 15, oriented to person, place, time, and situation. Cranial nerves II-XII grossly intact. Motor strength 5/5 in all extremities. Sensory grossly intact. Cerebellar exam normal. Normal gait. Vital Signs: 14:52 BP 135 / 88; Pulse 115; Resp 20; Temp 102.6; Pulse Ox 99% on R/A; Weight 88.9 kg (M); kg Height 5 ft. 7 in. (170.18 cm); Pain 6/10; 15:51 BP 117 / 73; Pulse 103; Resp 18; Pulse Ox 98% on R/A; ap3 14:52 Body Mass Index 30.70 (88.90 kg, 170.18 cm) kg MDM: 15:13 Patient medically screened. nc2 15:13 Differential diagnosis: bacterial infection, URI, bronchitis, UTI, gastroenteritis. nc2 16:25 Data reviewed: vital signs, nurses notes. Counseling: I had a detailed discussion with ma2 the patient and/or guardian regarding: the historical points, exam findings, and any diagnostic results supporting the discharge/admit diagnosis, the presence of at least one elevated blood pressure reading (>120/80) during this emergency department visit, the need for outpatient follow up, for definitive care. Response to treatment: the patient's symptoms have markedly improved after treatment. 01/05 15:01 Order name: Urine Microscopic Only; Complete Time: 16:14 cp 01/05 15:12 Order name: Basic Metabolic Panel; Complete Time: 16:14 ma2 01/05 15:12 Order name: CBC with Diff; Complete Time: 16:14 nc2 01/05 15:12 Order name: Hepatic Function; Complete Time: 16:14 ma2 01/05 15:12 Order name: Lipase; Complete Time: 16:14 [facility] 01/05 15:13 Order name: Urine Dipstick-Ancillary; Complete Time: 16:14 EDMS 01/05 15:01 Order name: Urine Dipstick-Ancillary (obtain specimen); Complete Time: 15:15 cp 01/05 15:01 Order name: Urine Test (obtain specimen); Complete Time: 15:15 cp 01/05 15:12 Order name: IV Saline Lock; Complete Time: 15:50 [facility] 01/05 15:12 Order name: Labs collected and sent; Complete Time: 15:50 [facility] 01/05 15:37 Order name: Urine Culture EDMS Administered Medications: 15:07 Drug: Tylenol 1000 mg Route: PO; kg 15:52 Drug: NS 0.9% 1000 ml Route: IV; Rate: 1 bolus; Site: right antecubital; ap3 16:36 Follow up: IV Status: Completed infusion; IV Intake: 1000ml ap3 15:52 Drug: Rocephin (cefTRIAXone) 1 grams Route: IV; Rate: calculated rate; Site: right ap3 antecubital; 16:36 Follow up: Response: No adverse reaction; IV Status: Completed infusion ap3 Disposition Summary: 01/05/21 16:26 Discharge Ordered Location: Home ma2 Condition: Stable ma2 Diagnosis - Acute cystitis without hematuria ma2 Followup: ma2 - With: Private Physician - When: Today - Reason: Continuance of care Discharge Instructions: - Discharge Summary Sheet ma2 - Urinary Tract Infection, Adult ma2 Forms: - Medication Reconciliation Form ma2 - Thank You Letter ma2 - Antibiotic Education ma2 - Prescription Opioid Use ma2 - Work release form eb Prescriptions: - Cipro 500 mg Oral Tablet - take 1 tablet by ORAL route every 12 hours for 7 days; 14 tablet; Refills: 0, ma2 Product Selection Permitted - Diclofenac Sodium 75 mg Oral Tablet Sustained Release - take 1 tablet by ORAL route 2 times per day; 30 tablet; Refills: 0, Product ma2 Selection Permitted Signatures: Dispatcher [employer] EDLester Rudolph PA PA cp Alzahri, Mohammad, MD MD ma2 Liliya Pan RN RN ap3 Alka Palmer RN RN kg
--- NOTE | 2021-01-05 16:26 | ER ---
Nurse's Notes [facility] [place] Name: Raine Solis Age: 40 yrs Sex: Female : 1980 Arrival Date: 01/05/2021 Time: 13:59 Bed 7 Private MD: Diagnosis: Acute cystitis without hematuria Presentation: 01/05 14:52 Chief complaint: Patient states: Burning with urniation starting Friday and cloudy kg urine. Started taking AZO Friday and Friday started having lower back pain and this morning started having a fever and leg pain. Max temp was 103.2 \T\ 12:00. no antipyretic taken. Coronavirus screen: Client denies travel out of the [place] in the last 14 days. Ebola Screen: Patient negative for fever greater than or equal to 101.5 degrees Fahrenheit, and additional compatible Ebola Virus Disease symptoms Patient denies exposure to infectious person. Patient denies travel to an Ebola-affected area in the 21 days before illness onset. Initial Sepsis Screen: Does the patient meet any 2 criteria? Temp <36.0*C (96.8*F)) or > 38.3*C (100.9*F). HR > 90 bpm. Yes Does the patient have a suspected source of infection? Yes: Dysuria/Frequency/Urgency/UTI. Risk Assessment: Do you want to hurt yourself or someone else? Patient reports no desire to harm self or others. Onset of symptoms was January 01, 2021. 14:52 Acuity: YARI 3 kg 14:57 Method Of Arrival: Ambulatory kg Triage Assessment: 14:55 General: Appears in no apparent distress. Behavior is calm, cooperative, appropriate kg for age, quiet. Pain: Complains of pain in lumbar area, left low back, left mid back, right mid back and right low back Pain radiates to right leg and left leg Pain currently is 6 out of 10 on a pain scale. at worst was 8 out of 10 on a pain scale. level that patient reports is acceptable is 5 out of 10 on a pain scale. Quality of pain is described as aching. 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 - Social history:: Smoking status: Patient reports the use of cigarette tobacco products, smokes one-half pack cigarettes per day, Patient uses alcohol, weekly. - Family history:: not pertinent. Screenin:57 Abuse screen: Denies threats or abuse. Denies injuries from another. Nutritional kg screening: No deficits noted. Tuberculosis screening: No symptoms or risk factors identified. Fall Risk None identified. Assessment: 15:50 General: Appears in no apparent distress. comfortable, Behavior is calm, cooperative, ap3 appropriate for age. General: Reports fever for 1-2 days, feeling ill for 2-3 days. Pain: Complains of pain in low back area Pain currently is 4 out of 10 on a pain scale. Pain began gradually, 2-3 days ago. Neuro: Level of Consciousness is awake, alert, obeys commands, Oriented to person, place, time, situation, Appropriate for age. Cardiovascular: Capillary refill < 3 seconds Patient's skin is warm and dry. Respiratory: Airway is patent Respiratory effort is even, unlabored, Respiratory pattern is regular, symmetrical. GI: Reports nausea. : Reports pain in lower back with urination. EENT: No signs and/or symptoms were reported regarding the EENT system. Derm: No signs and/or symptoms reported regarding the dermatologic system. 16:35 Reassessment: Patient and/or family updated on plan of care and expected duration. Pain ap3 level reassessed. Patient is alert, oriented x 3, equal unlabored respirations, skin warm/dry/pink. Vital Signs: 14:52 BP 135 / 88; Pulse 115; Resp 20; Temp 102.6; Pulse Ox 99% on R/A; Weight 88.9 kg (M); kg Height 5 ft. 7 in. (170.18 cm); Pain 6/10; 15:51 BP 117 / 73; Pulse 103; Resp 18; Pulse Ox 98% on R/A; ap3 14:52 Body Mass Index 30.70 (88.90 kg, 170.18 cm) kg ED Course: 13:59 Patient arrived in ED. ds1 14:55 Triage completed. kg 14:57 Patient has correct armband on for positive identification. kg 14:58 Antipyretic given from triage as ordered by the ER provider. Arm band placed on right kg wrist. 15:05 Angela Denis, RN is Primary Nurse. iw 15:07 Ashley Johnson MD is Attending Physician. ok2 15:15 Urine Microscopic Only Sent. dh3 15:45 Inserted saline lock: 20 gauge in right antecubital area, using aseptic technique. ap3 Blood collected. 16:35 No provider procedures requiring assistance completed. IV discontinued, intact, ap3 bleeding controlled, No redness/swelling at site. Pressure dressing applied. Administered Medications: 15:07 Drug: Tylenol 1000 mg Route: PO; kg 15:52 Drug: NS 0.9% 1000 ml Route: IV; Rate: 1 bolus; Site: right antecubital; ap3 16:36 Follow up: IV Status: Completed infusion; IV Intake: 1000ml ap3 15:52 Drug: Rocephin (cefTRIAXone) 1 grams Route: IV; Rate: calculated rate; Site: right ap3 antecubital; 16:36 Follow up: Response: No adverse reaction; IV Status: Completed infusion ap3 Intake: 16:36 IV: 1000ml; Total: 1000ml. ap3 Outcome: 16:26 Discharge ordered by . ma2 16:35 Discharged to home ambulatory, with significant other. ap3 16:35 Condition: good 16:35 Discharge instructions given to patient, significant other, Instructed on discharge instructions, follow up and referral plans. medication usage, Demonstrated understanding of instructions, follow-up care, medications, Prescriptions given X 2. 16:35 Patient left the ED. ap3 Addendum: 01/09/2021 08:53 Addendum: Culture Results: Positive urine culture. No further action required. Bacteria s s sensitive to prescribed antibiotic. Signatures: Ginna Hopper ds1 Angela Denis, RN MARLIN Dilma Ellison RN RN ss Herrera, Deanna 3 Ashley Johnson MD MD ma2 Prokisch, Amanda, RN RN ap3 Alka Palmer RN RN kg
[2021-01-05 16:48] VITALS: TEMP 102.6
[2021-01-05 16:50] VITALS: BP 117/73; O2SAT 98
== END 2021-01-05 16:35 | disposition home or self-care (01) ==
LOC: ER 13:57
DX: N30.00 Acute cystitis without hematuria (principal); F17.210 Nicotine dependence, cigarettes, uncomplicated
CPT/HCPCS: 96365; 87088; 85025; 87086; 80048; 36415; 80076; 87077; 87186; 83690; 99284; J0696; J7030; 81003; 81015

== ENCOUNTER 2021-10-15 12:48 | Emergency (ER) | payer BC ==
[2021-10-15] MEDS ORDERED: NA CHLORIDE 0.9% 1,000 ML ONE (13:52)
[2021-10-15] MEDS ORDERED: FAMOTIDINE 20 MG/2 ML VIAL IV ONE (13:52)
[2021-10-15] MEDS ORDERED: ONDANSETRON 4 MG/2 ML VIAL ONE (13:52)
[2021-10-15 13:53] LABS: Urine Blood Negative (Negative); Urine Glucose Negative (Negative); Urine Protein Trace (Negative); Urine Specific Gravity >=1.030 (1.005-1.030); Urine pH 5.5 (5.0-7.0)
[2021-10-15 14:43] LABS: Absolute Lymphocytes (CBC) 1.4 K/uL (0.7-4.9); Hematocrit 37.9 % (36.0-45.0); Lymphocytes % 21.3 % (15.3-44.8); MPV 8.1 fL (7.6-11.3); RBC Red Blood Cell Count 4.48 M/uL (3.86-4.86)
[2021-10-15 15:02] LABS: Albumin 3.3 g/dL (3.4-5.0); Bilirubin Total 0.3 mg/dL (0.2-1.0); Potassium 3.8 mmol/L (3.5-5.1); Protein, Total 7.3 g/dL (6.4-8.2)
--- NOTE | 2021-10-15 16:12 | RAD REPORT ---
EXAM DESCRIPTION: CT - Abdomen Pelvis W Contrast - 10/15/2021 3:31 pm CLINICAL HISTORY: Abdominal pain, acute, nonlocalized COMPARISON: No comparisons TECHNIQUE: Biphasic, helical CT imaging of the abdomen and pelvis was performed following 100 ml non -ionic IV contrast. No oral contrast administered. All CT scans are performed using dose optimization technique as appropriate and may include automated exposure control or mA/KV adjustment according to patient size. FINDINGS: No suspicious findings in the lung bases. The liver, spleen, and pancreas show no suspicious findings. Rounded rim calcification fundus of the gallbladder is believed to be calcified gallstone rather than gallbladder wall calcification. Sonogra phy may be helpful for clarification. This finding does not appear to be of acute clinical significan ce. There is no gallbladder wall thickening or pericholecystic fluid. No biliary tree dilatation. Symmetric renal function is seen with no hydronephrosis or suspicious renal mass. No pyelonephritis o r acute parenchymal process. No bladder abnormalities. No adrenal abnormalities. Uterus and left ovar y show no suspicious findings. Right ovary contains a 2.2 centimeter cyst. No dilated bowel loops or bowel wall thickening. No appendicitis findings. No active GI process seen. No free air, free fluid or inflammatory stranding. No hernia, mass or bulky lymphadenopathy. No suspicious bony findings. IMPRESSION: Contrast enhanced CT abdomen and pelvis showing no acute or emergent finding. Calcifications of the gallbladder fundus are favored to be gallstones rather than gallbladder wall ca lcifications. This does not appear to be an acute finding and can be followed up with outpatient gall bladder sonography.
--- NOTE | 2021-10-15 16:22 | EDPHYS ---
Physician Documentation [facility] Name: Raine Solis Age: 41 yrs Sex: Female : 1980 Arrival Date: 10/15/2021 Time: 12:51 Bed 8 Private MD: ED Physician Jerman Mitchell HPI: 10/15 13:37 The patient presents with abdominal pain. Onset: The symptoms/episode began/occurred jmm gradually, 2 day(s) ago. The symptoms radiate to back. Associated signs and symptoms: Pertinent positives: nausea and vomiting, diarrhea. The symptoms are described as achy, sharp. Modifying factors: The symptoms are alleviated by nothing, the symptoms are aggravated by drinking, food. It is unknown whether or not the patient has had similar symptoms in the past. Patient complains of epigastric pain beginning approx 2 days ago worsening with eating or drinking. Pain radiates to the back. Patient complains of fever, chills. Denies known infectious exposure. . 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 - Social history:: Smoking status: Patient reports the use of cigarette tobacco products, smokes one pack cigarettes per day. ROS: 13:37 Constitutional: Positive for body aches, chills. jmm 13:37 Abdomen/GI: Positive for 13:37 All other systems are negative. Exam: 13:37 Constitutional: This is a well developed, well nourished patient who is awake, alert, jmm and in no acute distress. Head/Face: atraumatic. Eyes: EOMI, no conjunctival erythema appreciated ENT: Moist Mucus Membranes Neck: Trachea midline, Supple Chest/axilla: Normal chest wall appearance and motion. Cardiovascular: Regular rate and rhythm. No edema appreciated Respiratory: Normal respirations, no respiratory distress appreciated 13:37 Skin: General appearance color normal MS/ Extremity: Moves all extremities, no obvious deformities appreciated, no edema noted to the lower extremities Neuro: Awake and alert Psych: Behavior is normal, Mood is normal, Patient is cooperative and pleasant 13:37 Abdomen/GI: Inspection: abdomen appears normal, Bowel sounds: normal, Palpation: soft, mild abdominal tenderness, in the epigastric area, right upper quadrant and left upper quadrant. 13:37 Back: CVA tenderness, is absent. Vital Signs: 13:10 BP 151 / 90; Pulse 97; Resp 16; Temp 98.5(O); Pulse Ox 100% ; Weight 86.18 kg; Height 5 vg1 ft. 7 in. (170.18 cm); Pain 2/10; 14:00 BP 140 / 95; Pulse 80; Resp 17; Pulse Ox 100% ; jh6 15:59 BP 140 / 88; Pulse 85; Resp 15; Pulse Ox 97% ; jl7 13:10 Body Mass Index 29.76 (86.18 kg, 170.18 cm) vg1 MDM: 13:30 Patient medically screened. [facility] 16:20 Data reviewed: vital signs, nurses notes. Counseling: I had a detailed discussion with ulises the patient and/or guardian regarding: the historical points, exam findings, and any diagnostic results supporting the discharge/admit diagnosis, lab results, radiology results, the need for outpatient follow up, to return to the emergency department if symptoms worsen or persist or if there are any questions or concerns that arise at home. ED course: Patient is alert and non toxic in appearance in the ED. patient is advised to follow up with gi/gen surgery for reevaluation. Patient otherwise given strict return precautions. patient understood and agrees with the plan of care. . 10/15 13:30 Order name: CBC with Diff; Complete Time: 14:52 [facility] 10/15 13:30 Order name: CMP; Complete Time: 15:06 [facility] 10/15 13:30 Order name: Lipase; Complete Time: 15:06 [facility] 10/15 13:31 Order name: CT Abd/Pelvis - IV Contrast Only; Complete Time: 16:15 [facility] 10/15 13:53 Order name: Urine Dipstick-Ancillary; Complete Time: 14:09 [facility] 10/15 13:55 Order name: Urine --Ancillary (enter results); Complete Time: 14:09 10/15 13:30 Order name: IV Saline Lock; Complete Time: 14:00 [facility] 10/15 13:30 Order name: Labs collected and sent; Complete Time: 14:00 [facility] 10/15 13:30 Order name: Urine Dipstick-Ancillary (obtain specimen); Complete Time: 14:00 [facility] 10/15 13:30 Order name: Urine Test (obtain specimen); Complete Time: 14:00 [facility] 10/15 14:14 Order name: Labs - recollect needed: recollect purple and green; Complete Time: 14:48 eb Administered Medications: 14:00 Drug: NS 0.9% 1000 ml Route: IV; Rate: 1 bolus; Site: left antecubital; [facility] 15:00 Follow up: IV Status: Completed infusion [facility] 14:00 Drug: Pepcid (famotidine) 20 mg Route: IVP; Site: left antecubital; [facility] 16:46 Follow up: Response: No adverse reaction [facility] 14:00 Drug: Zofran (Ondansetron) 4 mg Route: IVP; Site: left antecubital; [facility] 16:46 Follow up: Response: No adverse reaction [facility] Disposition: 18:50 Co-signature as Attending Physician, Jerman Mitchell MD. rn Disposition Summary: 10/15/21 16:22 Discharge Ordered Location: Home [facility] Condition: Stable [facility] Diagnosis - Upper abdominal pain, unspecified jmm - Vomiting [facility] Followup: [facility] - With: Shailesh Jarrett MD - When: 2 - 3 days - Reason: Recheck today's complaints, Continuance of care, Re-evaluation by your physician Followup: [facility] - With: Sage Wilde MD - When: 2 - 3 days - Reason: Recheck today's complaints, Continuance of care, Re-evaluation by your physician Discharge Instructions: - Discharge Summary Sheet [facility] - Abdominal Pain, Adult jmm - Biliary Colic, Adult jmm - Clear Liquid Diet, Adult [facility] Forms: - Medication Reconciliation Form [facility] - Thank You Letter [facility] - Antibiotic Education [facility] - Prescription Opioid Use [facility] - Work release form ss Prescriptions: - ondansetron 4 mg Oral tablet,disintegrating - take 1 tablet by ORAL route every 4-6 hours; 20 tablet; Refills: 0, Product [facility] Selection Permitted - Pepcid 20 mg Oral Tablet - take 1 tablet by ORAL route every 12 hours for 10 days; 20 tablet; Refills: 0, [facility] Product Selection Permitted - dicyclomine 20 mg Oral Tablet - take 1 tablet by ORAL route 4 times per day; 30 tablet; Refills: 0, Product jmm Selection Permitted Signatures: Dispatcher [employer] Ismael Galeana PA PA jmm Nieto, Roman, MD MD rn Botello, Elizabeth eb Garcia, Victoria RN RN vg1 [place] Bailey RN RN jh6
--- NOTE | 2021-10-15 16:22 | ER ---
Nurse's Notes [facility] [place] Name: Raine Solis Age: 41 yrs Sex: Female : 1980 Arrival Date: 10/15/2021 Time: 12:51 Bed 8 Private MD: Diagnosis: Upper abdominal pain, unspecified;Vomiting Presentation: 10/15 13:10 Chief complaint: Patient states: Diarrhea began Friday night; Friday had ABD pain, vg1 fever, chills and bodyaches; yesterday fever broke but states Epigastric pain and mid back pain has not gone away and states ABD pain becomes worse after eating or drinking. Coronavirus screen: Vaccine status: Patient reports being unvaccinated. Client denies travel out of the [place] in the last 14 days. Ebola Screen: Patient denies exposure to infectious person. Patient denies travel to an Ebola-affected area in the 21 days before illness onset. Initial Sepsis Screen: Does the patient meet any 2 criteria? No. Patient's initial sepsis screen is negative. Does the patient have a suspected source of infection? No. Patient's initial sepsis screen is negative. Risk Assessment: Do you want to hurt yourself or someone else? Patient reports no desire to harm self or others. Onset of symptoms was October 12, 2021. 13:10 Method Of Arrival: Ambulatory vg1 13:10 Acuity: YARI 3 vg1 Triage Assessment: 13:12 General: Appears in no apparent distress. uncomfortable, Behavior is calm, cooperative. vg1 Pain: Complains of pain in epigastric area Pain currently is 2 out of 10 on a pain scale. at worst was 8 out of 10 on a pain scale. GI: Reports diarrhea, nausea, Patient currently denies vomiting. [employer]: 13:12 LMP 09/21/2021 vg1 Historical: - Allergies: 13:12 No Known Allergies; vg1 - Home Meds: 13:12 None [Active]; vg1 - PMHx: 13:12 Anxiety; vg1 - PSHx: 13:12 None; vg1 - Immunization history:: Client reports having NOT received the Covid vaccine. - Social history:: Smoking status: Patient reports the use of cigarette tobacco products, smokes one pack cigarettes per day. Screenin:25 Abuse screen: Denies threats or abuse. Denies injuries from another. jh6 13:25 Nutritional screening: No deficits noted. Tuberculosis screening: No symptoms or risk jh6 factors identified. Fall Risk IV access (20 points). Assessment: 13:25 General: Appears in no apparent distress. comfortable, Behavior is calm, cooperative, jh6 appropriate for age. 13:25 Pain: Complains of pain in xiphoid area Pain radiates to thoracic area Pain currently jh6 is 4 out of 10 on a pain scale. Quality of pain is described as dull, shooting, gnawing, Pain began 2-3 days ago. Is intermittent, Aggravated by eating, drinking, Noted to be quiet/stoic. Neuro: No deficits noted. Cardiovascular: No deficits noted. GI: Bowel sounds present X 4 quads. Abd is soft X 4 quads Abdomen is tender to palpation in epigastric area Guarding noted in epigastric area Reports upper abdominal pain, diarrhea. 14:30 Reassessment: No changes from previously documented assessment. Patient is alert, jh6 oriented x 3, equal unlabored respirations, skin warm/dry/pink. 16:43 Reassessment: Patient and/or family updated on plan of care and expected duration. Pain jh6 level reassessed. Patient is alert, oriented x 3, equal unlabored respirations, skin warm/dry/pink. Patient states feeling better. General: Appears in no apparent distress. Pain: Pain currently is 3 out of 10 on a pain scale. Vital Signs: 13:10 BP 151 / 90; Pulse 97; Resp 16; Temp 98.5(O); Pulse Ox 100% ; Weight 86.18 kg; Height 5 vg1 ft. 7 in. (170.18 cm); Pain 2/10; 14:00 BP 140 / 95; Pulse 80; Resp 17; Pulse Ox 100% ; jh6 15:59 BP 140 / 88; Pulse 85; Resp 15; Pulse Ox 97% ; jl7 13:10 Body Mass Index 29.76 (86.18 kg, 170.18 cm) vg1 ED Course: 12:51 Patient arrived in ED. mr 12:59 Ismael Fox PA is PHCP. jmm 12:59 Jerman Mitchell MD is Attending Physician. [facility] 13:12 Triage completed. vg1 13:12 Arm band placed on. vg1 13:16 [place] Bailey, RN is Primary Nurse. [facility] 13:40 No provider procedures requiring assistance completed. Inserted saline lock: 22 gauge jh6 in left antecubital area, using aseptic technique. 13:40 Initial lab(s) drawn, by me, Urine collected: clean catch specimen. 6 15:33 CT Abd/Pelvis - IV Contrast Only In Process Unspecified. EDMS 16:21 Shailesh Jarrett MD is Referral Physician. [facility] 16:22 Sage Wilde MD is Referral Physician. [facility] 16:45 IV discontinued, intact, bleeding controlled, No redness/swelling at site. Pressure 6 dressing applied. Administered Medications: 14:00 Drug: NS 0.9% 1000 ml Route: IV; Rate: 1 bolus; Site: left antecubital; 6 15:00 Follow up: IV Status: Completed infusion [facility] 14:00 Drug: Pepcid (famotidine) 20 mg Route: IVP; Site: left antecubital; 6 16:46 Follow up: Response: No adverse reaction [facility] 14:00 Drug: Zofran (Ondansetron) 4 mg Route: IVP; Site: left antecubital; 6 16:46 Follow up: Response: No adverse reaction [facility] Outcome: 16:22 Discharge ordered by . [facility] 16:45 Discharged to home ambulatory. [facility] 16:45 Condition: improved 16:45 Discharge instructions given to patient, family, Instructed on discharge instructions, follow up and referral plans. Demonstrated understanding of instructions, follow-up care, medications, Prescriptions given X 3. 16:46 Patient left the ED. [facility] Signatures: Dispatcher [employer] EDMS Ismael Fox PA PA jmm Rivera, Mary mr Leal, Jahala, RN RN jl7 Samara Witt, RN RN vg1 [place] Bailey, RN RN jh6
[2021-10-15 17:20] VITALS: TEMP 98.5
[2021-10-15 17:28] VITALS: BP 140/88; O2SAT 97
== END 2021-10-15 16:46 | disposition home or self-care (01) ==
LOC: ER 12:48
DX: R10.13 Epigastric pain (principal); R11.10 Vomiting, unspecified; F17.210 Nicotine dependence, cigarettes, uncomplicated
CPT/HCPCS: 85025; 36415; 81025; 81003; 83690; 80053; 74177; Q9967; J7030; J2405; J3490; 96361; 96374; 96375; 99284

== ENCOUNTER 2021-10-24 06:34 | Day surgery (SDC) | payer BC ==
[2021-10-24] MEDS ORDERED: Ringers Lactate 1,000 ML IV ONE (06:58)
[2021-10-24] MEDS ORDERED: propofoL 200 MG/20 ML VIAL IV ONE ×3 (07:53→08:01)
[2021-10-24] MEDS ORDERED: LIDOCAINE 1% MPF 5 ML VIAL ONE (07:53)
[2021-10-24] MEDS ORDERED: EPINEPHRINE/PF 1 MG/ML AMP ONE (08:09)
--- NOTE | 2021-10-24 08:18 | ENDO RPT ---
[address], [address] EGD PROCEDURE REPORT EXAM DATE: 10/24/2021 PATIENT NAME: Raine Solis MR#: [id number] BIRTHDATE: 1980 ATTENDING: Sage Wilde DR STATUS: outpatient CONTRACT ADMINISTRATIVE ASSISTANT: Katerina Molina RN and [place] [facility] INDICATIONS: The patient is a 41 yr old Female here for an EGD due to mid epigastric abdominal pain PROCEDURE PERFORMED: EGD with biopsy for H. pylori and EGD for control of bleeding MEDICATIONS: Per Anesthesia. TOPICAL ANESTHETIC: none CONSENT: The patient understands the risks and benefits of the procedure and understands that these risks include, but are not limited to: sedation, allergic reaction, infection, perforation and/or bleeding. Alternative means of evaluation and treatment include, among others: physical exam, x-rays, and/or surgical intervention. The patient elects to proceed with this endoscopic procedure. DESCRIPTION OF PROCEDURE: During intra-op preparation period all mechanical medical equipment was checked for proper function. Hand hygiene and appropriate measures for infection prevention was taken. Procedure, possible complications, and alternatives including but not limited to the possibility of bleeding, perforation, tear, infection, sepsis, need for surgery, need for blood transfusion, and anesthesia related complications were explained to the patient. After the risks, benefits and alternatives of the procedure were thoroughly explained, Informed consent was verified, confirmed and timeout was successfully executed by the treatment team. The patient was placed in the left lateral position. The patient was anesthetized with topical anesthesia. Through the anesthetized oropharyngeal area, the scope was passed without any difficulty. The EC-[id number] ([id number]) and [id number] ([id number]) endoscope was introduced through the mouth and advanced to the third portion of the duodenum. Retroflexed views revealed a small hiatal hernia. The gastroscope was then slowly withdrawn and removed. Bile reflux was found in the gastroesophageal junction. A biopsy for H. pylori was taken. LA Class B esophagitis was found in the lower esophagus. long linear erosions With standard forceps, a biopsy was obtained and sent to pathology. Mild gastritis was found in the body and the antrum of the stomach. A biopsy for H. pylori was taken. Multiple biopsies were obtained and sent to pathology. ADVERSE EVENTS: There were no complications. IMPRESSIONS: Bile reflux was found in the gastroesophageal junction RECOMMENDATIONS: 1. acid suppression therapy 2. anti-reflux regimen 3. await biopsy results 4. follow-up: office 2 week(s) 5. avoid NSAIDS 6. follow-up of helicobacter pylori status, treat if indicated REPEAT EXAM: Sage Wilde DR eSigned: Sage Wilde DR 10/24/2021 8:17 AM cc: CPT CODES: ICD9 CODES: PATIENT NAME: Raine Solis MR#: [id number]
--- NOTE | 2021-10-24 08:19 | ENDO RPT ---
[address], [address] EGD PROCEDURE REPORT EXAM DATE: 10/24/2021 PATIENT NAME: Raine Solis MR#: [id number] BIRTHDATE: 1980 ATTENDING: Sage Wilde DR STATUS: outpatient CREDIT ASSISTANT: Katerina Molina RN and [facility] INDICATIONS: The patient is a 41 yr old Female here for an EGD due to mid epigastric abdominal pain PROCEDURE PERFORMED: EGD with biopsy for H. pylori and EGD for control of bleeding MEDICATIONS: Per Anesthesia. TOPICAL ANESTHETIC: none CONSENT: The patient understands the risks and benefits of the procedure and understands that these risks include, but are not limited to: sedation, allergic reaction, infection, perforation and/or bleeding. Alternative means of evaluation and treatment include, among others: physical exam, x-rays, and/or surgical intervention. The patient elects to proceed with this endoscopic procedure. DESCRIPTION OF PROCEDURE: During intra-op preparation period all mechanical medical equipment was checked for proper function. Hand hygiene and appropriate measures for infection prevention was taken. Procedure, possible complications, and alternatives including but not limited to the possibility of bleeding, perforation, tear, infection, sepsis, need for surgery, need for blood transfusion, and anesthesia related complications were explained to the patient. After the risks, benefits and alternatives of the procedure were thoroughly explained, Informed consent was verified, confirmed and timeout was successfully executed by the treatment team. The patient was placed in the left lateral position. The patient was anesthetized with topical anesthesia. Through the anesthetized oropharyngeal area, the scope was passed without any difficulty. The EC-[id number] ([id number]) and [id number] ([id number]) endoscope was introduced through the mouth and advanced to the third portion of the duodenum. Retroflexed views revealed a small hiatal hernia. The gastroscope was then slowly withdrawn and removed. Bile reflux was found in the gastroesophageal junction. A biopsy for H. pylori was taken. Minor bleeding noted @ biopsy site controlled with Epinepherine injection 0.25 cc. LA Class B esophagitis was found in the lower esophagus. long linear erosions With standard forceps, a biopsy was obtained and sent to pathology. Mild gastritis was found in the body and the antrum of the stomach. A biopsy for H. pylori was taken. Multiple biopsies were obtained and sent to pathology. ADVERSE EVENTS: There were no complications. IMPRESSIONS: Bile reflux was found in the gastroesophageal junction RECOMMENDATIONS: 1. acid suppression therapy 2. anti-reflux regimen 3. await biopsy results 4. follow-up: office 2 week(s) 5. avoid NSAIDS 6. follow-up of helicobacter pylori status, treat if indicated REPEAT EXAM: Sage Wilde DR eSigned: Sage Wilde DR 10/24/2021 8:19 AM Revised: 10/24/2021 8:19 AM cc: CPT CODES: ICD9 CODES: PATIENT NAME: Raine Solis MR#: [id number]
[2021-10-24 08:45] VITALS: TEMP 98.1
[2021-10-24 08:47] VITALS: O2SAT 99
[2021-10-24 08:48] VITALS: BP 118/90
== END 2021-10-24 08:50 | disposition home or self-care (01) ==
LOC: OR 06:34
PROVIDERS: ATTEND Surgery
PROC: 0DB78ZX Excision of Stomach, Pylorus, Via Natural or Artificial Opening Endoscopic, Diagnostic (ICD-10-PCS; 2021-10-24)
PROC: 0DB68ZX Excision of Stomach, Via Natural or Artificial Opening Endoscopic, Diagnostic (ICD-10-PCS; 2021-10-24)
PROC: 0DB58ZX Excision of Esophagus, Via Natural or Artificial Opening Endoscopic, Diagnostic (ICD-10-PCS; 2021-10-24)
PROC: 0DB48ZX Excision of Esophagogastric Junction, Via Natural or Artificial Opening Endoscopic, Diagnostic (ICD-10-PCS; 2021-10-24)
PROC: 0DB98ZX Excision of Duodenum, Via Natural or Artificial Opening Endoscopic, Diagnostic (ICD-10-PCS; principal; 2021-10-24 07:45)
DX: K20.90 Esophagitis, unspecified without bleeding (principal); K29.50 Unspecified chronic gastritis without bleeding; Z20.822 Contact with and (suspected) exposure to COVID-19
CPT/HCPCS: 36415; 88312 ×2; 84703; 88305; 43239; U0003; J2704 ×2; J0171; J7120

== ENCOUNTER 2023-03-19 09:29 | Day surgery (SDC) | payer BC ==
[2023-03-19] MEDS ORDERED: SOD FERRIC GLUC COMPLX/SUCROSE 125 MG in NA CHLORIDE 0.9% 100 ML IV ONE (10:30)
[2023-03-19 13:15] VITALS: BP 141/75; O2SAT 100; BMI 29.0
[2023-03-19 13:22] VITALS: TEMP 98
== END 2023-03-19 11:30 | disposition home or self-care (01) ==
LOC: DS 09:29
PROVIDERS: ATTEND Physician Assistant
DX: D64.9 Anemia, unspecified (principal)
CPT/HCPCS: 96365; 96366; J2916